=== PATIENT | male | born 1940 | race African-American/Black ===

== ENCOUNTER 2024-03-15 08:41 | Emergency (ER) | payer MEDICARE, OTHER ==
[~2024-03-15] VITALS: Ht 170.2 cm; Wt 59.0 kg
[~2024-03-15 08:41] MED LIST: LIPIZIDE; Metformin; Simvastatin
[2024-03-15 08:42] VITALS: TEMP 98.3; O2SAT 98
[2024-03-15] MEDS: SODIUM CHLORIDE 0.9% 1,000 ML IV ONE ×2 (09:00→13:01)
[2024-03-15] MEDS ORDERED: DILTIAZEM HCL 5MG/ML 5ML VIAL IV ONE (09:15)
[2024-03-15 09:53] LABS: BG BASE EXCESS -3.8 mmol/L (-2.0-2.0); BG DEOXYHEMOGLOBIN 3.5 % (0.0-5.0); BG FRACTION INSPIRED OXYGEN 21; BG HCO3 ACT 19.1 mmol/L (22.0-26.0); BG METHEMOGLOBIN 0.3 % (0.0-1.5); BG OXYGEN SATURATION 96.5 % (92.0-98.5); BG OXYHEMOGLOBIN 95.2 % (94.0-97.0); BG PCO2 28.6 mmHg (35.0-45.0); BG PH 7.443 (7.350-7.450); BG SAMPLE SITE LEFT RADIAL; BG TOTAL HEMOGLOBIN 12.6 g/dL (12.0-18.0); BG VENT MODE ROOM AIR
[2024-03-15 09:58] LABS: BASOPHILS % 0.8 % (0.0-2.0); HEMATOCRIT. 43.6 % (42.0-52.0); HEMOGLOBIN. 13.7 g/dL (14.0-18.0); LYMPHOCYTES % 23.3 % (20.0-50.0); MEAN CORPUSCULAR HEMOGLOBIN 26.7 pg (28.0-32.0); MEAN CORPUSCULAR HGB CONC 31.5 g/dL (31.0-37.0); MEAN CORPUSCULAR VOLUME 84.8 fL (80.0-94.0); MONOCYTES % 6.3 % (2.0-8.0); NEUTROPHILS % 69.6 % (40.0-76.0); RED BLOOD CELL COUNT 5.14 mill/uL (4.7-6.1); RED CELL DISTRIBUTION WIDTH 17.8 % (11.6-14.6); WHITE BLOOD COUNT 9.5 x1000/uL (4.5-11.0)
[2024-03-15 10:29] LABS: DIFFERENTIAL COMMENT 1
[2024-03-15 11:04] LABS: PARTIAL THROMBOPLASTIN TIME 24.2 sec (23.4-31.0); PROTHROMBIN TIME 10.8 sec (9.6-11.0)
[2024-03-15] MEDS: DILTIAZEM HCL 5MG/ML 5ML VIAL IV NR (11:06)
[2024-03-15 11:21] LABS: MEAN PLATELET VOLUME 9.5 fl (7.4-10.4)
[2024-03-15 11:22] LABS: PLATELET 266 x1000/uL (130-400)
[2024-03-15 12:13] LABS: ALANINE AMINOTRANSFERASE 20 IU/L (10-49); ALBUMIN 3.7 g/dL (3.2-4.8); ASPARTATE AMINOTRANSFERASE 19 IU/L (<34); BILIRUBIN TOTAL 0.4 mg/dL (0.1-1.0); CARBON DIOXIDE 19 mEq/L (21-32); CHLORIDE 108 mEq/L (98-107); CREATININE 1.3 mg/dL (0.6-1.3); PHOSPHORUS 2.8 mg/dL (2.5-4.9); POTASSIUM 4.5 mEq/L (3.5-5.1); PROTEIN TOTAL 6.4 g/dL (6.0-8.3); SODIUM 136 mEq/L (136-145); THYROID STIMULATING HORMONE 0.83 uIU/mL (0.55-4.78); TROPONIN I HIGH SENSITIVITY 16 ng/L (3.0-53); UREA NITROGEN BLOOD 16 mg/dL (9-23)
[2024-03-15 12:23] LABS: ETHANOL BLOOD < 10 mg/dL (<10)
[2024-03-15 12:25] LABS: GLUCOSE 538 mg/dL (70-105)
[2024-03-15] MEDS: INSULIN REGULAR (HUMULIN R) 300UNITS/3ML VIAL IV ONE (12:42)
[2024-03-15 13:25] LABS: CLARITY URINE CLEAR (CLEAR); COLOR URINE YELLOW (YELLOW); GLUCOSE URINE 3+ (NEGATIVE); KETONES URINE 1+ (NEGATIVE); LEUKOCYTE ESTERASE URINE NEGATIVE (NEGATIVE); NITRITE URINE NEGATIVE (NEGATIVE); OCCULT BLOOD URINE NEGATIVE (NEGATIVE); PH URINE 5.5 (4.5-8.0); PROTEIN URINE 1+ (NEGATIVE); SPECIFIC GRAVITY URINE 1.036 (1.005-1.030); UROBILINOGEN URINE 0.2 E.U./dL (0.2-1.0)
[2024-03-15 13:45] LABS: SQUAMOUS EPITHELIAL CELL URINE FEW /lpf (RARE/1+)
[2024-03-15 13:47] LABS: RBC URINE 0-2 /hpf (0-2); WBC URINE 0-2 /hpf (0-2)
[2024-03-15 13:48] LABS: BACTERIA URINE NONE SEEN; YEAST URINE 1+
[2024-03-15] MEDS: INSULIN REGULAR (HUMULIN R) 300UNITS/3ML VIAL IV STA (15:01)
[2024-03-15] MEDS: POTASSIUM CHLORIDE 20MEQ/PACKET PO ONE (15:02)
[2024-03-15 16:40] VITALS: BP 150/97; PULSE 74; RESP 13
== END 2024-03-15 17:16 | disposition short-term general hospital (02) ==
LOC: ER 08:54 → CANBEDREQ 03-17 10:34
DX: I48.20 Chronic atrial fibrillation, unspecified (principal); E11.65 Type 2 diabetes mellitus with hyperglycemia; R51.9 Headache, unspecified; I10 Essential (primary) hypertension; Z20.822 Contact with and (suspected) exposure to COVID-19; Z90.49 Acquired absence of other specified parts of digestive tract
CPT/HCPCS: 80053; 81003; 80320; 82962; 83880; 83735; 84100; 84443; 85025; 85610; 85730; 84484; 36415; 71045; 70450; 82805; 82375; 93005; 96361; 96374; 96375; 96376; 99291; 87426; 36600; J3490; J1815; J7030; G0480